=== PATIENT | female | born 1995 | race Asian ===

== ENCOUNTER 2020-03-07 13:23 | Emergency (ER) | payer SELFPAY ==
[~2020-03-07] VITALS: Ht 165.1 cm; Wt 61.2 kg
[2020-03-07 13:30] VITALS: BP 134/81
--- NOTE | 2020-03-07 13:50 | NUR ---
PELVIC EXAM DONE BY DR. GOINS WITNESSED BY A FEMALE NURSE.
--- NOTE | 2020-03-07 14:08 | NUR ---
Patient discharged to [facility] in stable condition. Written and verbal after care instructions given. Patient verbalizes understanding of instruction.
== END 2020-03-07 14:10 | disposition home or self-care (01) ==
LOC: ER 13:26
DX: Z02.89 Encounter for other administrative examinations (principal)